=== PATIENT | female | born 1945 | race Caucasian/White ===

== ENCOUNTER 2016-08-03 11:06 | Day surgery (SDC) | payer MEDICARE, BC ==
[~2016-08-03 11:06] MED LIST: ALEVE220 MG PO; AMB10 PO; B12250T PO; CALTRA600D PO; CELEXA40 MG PO; CO Q-10200 MG PO; COZAAR100 MG PO; FISH OIL; FISH-EPA1000 MG PO; JUICE PLUS PO; KDUR10 PO; KLOR-CON 1010 MEQ PO; LOP25 PO; MAX25 PO; MOBIC15 MG PO; NORCO1 TAB PO; PRILOSEC40 MG PO; PRISTIQ100 MG PO; RELA5 PO; SYN.05 PO; VESICARE5 PO; VITAMIN B-121000 MC1 SL; VITAMIN D1000 UNI1 PO; VITAMIN D31000 UNIT PO; WELLXL150 PO
== END 2016-08-03 15:32 | disposition home or self-care (01) ==
LOC: IMGHOLD 11:06 → RADHOLD 11:17 → SDC/OF 12:36
DX: M51.25 Other intervertebral disc displacement, thoracolumbar region (principal); M47.816 Spondylosis without myelopathy or radiculopathy, lumbar region; I10 Essential (primary) hypertension; G47.33 Obstructive sleep apnea (adult) (pediatric); E03.9 Hypothyroidism, unspecified; F17.210 Nicotine dependence, cigarettes, uncomplicated; Z88.0 Allergy status to penicillin; Z88.2 Allergy status to sulfonamides
CPT/HCPCS: 72148; 72195; 80048; 85014; 85018; 93005; J2250; J2405